=== PATIENT | female | born 1960 | race Two or more races ===

== ENCOUNTER 2018-08-18 12:25 | Emergency (ER) | payer BC, MEDICAID ==
[~2018-08-18] VITALS: Ht 162.6 cm; Wt 105.6 kg
[~2018-08-18 12:25] MED LIST: AMLO-150 PO; ATOR40TA78 PO; CHOL10002 PO; HYDR-3341 PO; HYDR12.517 PO; LISI5TAB7 PO; MULT-257 PO
[2018-08-18] MEDS ORDERED: SODIUM CHLORIDE FLUSH 10ML SYR IVF ONE (13:30)
[2018-08-18] MEDS ORDERED: ONDANSETRON 2MG/ML, 2ML IVPush ONE (13:30)
[2018-08-18] MEDS ORDERED: MORPHINE SULFATE 4 MG/ML, 1ML IVPush PRN (13:30)
[2018-08-18 13:35] LABS: CULTURE INDICATED? NO; MICROSCOPIC NOT IND
[2018-08-18] MEDS ORDERED: ONDANSETRON 2MG/ML, 2ML ONE (13:37)
[2018-08-18 13:47] VITALS: BP 143/66
[2018-08-18 14:12] LABS: BASOPHILS # (AUTO) 0.02 x10^3/uL (0-0.1); BASOPHILS % (AUTO) 0 % (0-1); EOSINOPHILS % (AUTO) 1 % (1-7); LYMPHOCYTES # (AUTO) 2.34 x10^3/uL (1-3.4); LYMPHOCYTES % (AUTO) 33 % (22-44); MD NO; MEAN CORPUSCULAR HEMOGLOBIN 30.2 pg (27.0-34.8); MEAN CORPUSCULAR HGB CONC 33.6 g/dL (32.4-35.8); MEAN CORPUSCULAR VOLUME 89.7 fL (80-100); MEAN PLATELET VOLUME 7.7 fL (7.4-10.4); MONOCYTES # (AUTO) 0.48 x10^3/uL (0.2-0.8); MONOCYTES % (AUTO) 7 % (2-9); NEUTROPHILS # (AUTO) 4.15 x10^3/uL (1.8-6.8); NEUTROPHILS % (AUTO) 59 % (42-75); PLATELET COUNT 294 x10^3/uL (130-400); RED BLOOD COUNT 5.03 x10^6/uL (3.82-5.3)
[2018-08-18 14:18] LABS: ALBUMIN 3.9 g/dL (3.4-5.0); ANION GAP 9 mmol/L (5-15); CALCIUM 8.6 mg/dL (8.5-10.1); CHLORIDE 108 mmol/L (98-107)
[2018-08-18 14:24] LABS: ALANINE AMINOTRANSFERASE 69 U/L (12-78); ALKALINE PHOSPHATASE 54 U/L (45-117); BILIRUBIN,TOTAL 0.8 mg/dL (0.2-1.0); CREATININE 0.82 mg/dL (0.55-1.02); TOTAL PROTEIN 7.5 g/dL (6.4-8.2); TROPONIN I < 0.015 ng/mL (0.000-0.045)
--- NOTE | 2018-08-18 14:42 | NUR ---
Patient sleeping soundly, VSS. Awaiting imaging.
--- NOTE | 2018-08-18 14:51 | NUR ---
Patient transported to imaging.
[2018-08-18] MEDS ORDERED: OMNIPAQUE 350 MG/ML, 100ML BOTTLE ONE (15:03)
--- NOTE | 2018-08-18 16:02 | NUR ---
Patient/Caregiver given discharge instructions and they have confirmed that they understand the instructions. Patient ambulatory with steady gait.
== END 2018-08-18 16:03 | disposition home or self-care (01) ==
LOC: ED 15:15
DX: K57.32 Diverticulitis of large intestine without perforation or abscess without bleeding (principal); G44.209 Tension-type headache, unspecified, not intractable; R07.89 Other chest pain; I10 Essential (primary) hypertension; Z90.49 Acquired absence of other specified parts of digestive tract; Z88.2 Allergy status to sulfonamides; Z88.1 Allergy status to other antibiotic agents; Z85.3 Personal history of malignant neoplasm of breast
CPT/HCPCS: 36415; 71045; 74177; 80053; 81003; 83690; 84484; 85025; 93005; 96374; 99284; J2405; Q9967

== ENCOUNTER 2018-12-06 08:14 | Observation (INO) | payer MEDICAID ==
[~2018-12-06] VITALS: Ht 162.6 cm; Wt 109.7 kg
[2018-12-07 16:39] VITALS: BP 130/81
== END 2018-12-07 16:59 | disposition home or self-care (01) ==
LOC: ED 09:51 → INTOOBSV 10:21 → EDIP 10:21 → 5SO 11:30
PROVIDERS: ADMIT Internal Medicine; ATTEND Internal Medicine
DX: R07.89 Other chest pain (principal); I11.9 Hypertensive heart disease without heart failure; E78.5 Hyperlipidemia, unspecified; I25.2 Old myocardial infarction; Z85.3 Personal history of malignant neoplasm of breast; Z90.710 Acquired absence of both cervix and uterus; Z90.49 Acquired absence of other specified parts of digestive tract; Z88.2 Allergy status to sulfonamides; Z88.8 Allergy status to other drugs, medicaments and biological substances; Z91.040 Latex allergy status; Z90.12 Acquired absence of left breast and nipple
CPT/HCPCS: 36415; 71045; 71275; 74175; 78452; 80048; 80053; 80061; 81001; 82040; 83036; 83735; 83880; 84439; 84443; 84484; 85025; 87086; 93005; 93017; 93306; 96372; 96374; 99285; A9502; C9898; G0378; J1644; J2060; J2785; Q9967

== ENCOUNTER 2020-08-10 14:58 | Emergency (ER) | payer MEDICAID ==
[~2020-08-10] VITALS: Ht 160 cm; Wt 104.5 kg
[~2020-08-10 14:58] MED LIST changes: +VALS1TAB29 PO
--- NOTE | 2020-08-10 15:44 | NUR ---
PT IN BED ON [employer], NO SIGNS OR SYMPTOMS OF ACUTE DISTRESS NOTED RESPIRATIONS EVEN AND UNLABORED PT COMPLAINING OF 5/10 CHEST PAIN AND SHORTNESS OF BREATH, SPEAKING IN FULL SENTENCES. MD IN ROOM TO ASSESS, RN IN ROOM TO START IV AND DRAW BLOOD. BED RAILS UP BILATERALLY AND CALL LIGHT WITHIN REACH.
[2020-08-10] MEDS ORDERED: NITROGLYCERIN SINGLE TAB 0.4 MG SL ONE ×2 (16:00→16:01)
[2020-08-10 16:08] LABS: BASOPHILS % (AUTO) 1 % (0-1); EOSINOPHILS % (AUTO) 3 % (1-7); LYMPHOCYTES % (AUTO) 43 % (22-44); MEAN CORPUSCULAR HGB CONC 34.3 g/dL (32.4-35.8); MEAN PLATELET VOLUME 7.4 fL (7.4-10.4); MONOCYTES % (AUTO) 7 % (2-9); NEUTROPHILS % (AUTO) 46 % (42-75); PLATELET COUNT 307 x10^3/uL (130-400); RED BLOOD COUNT 4.87 x10^6/uL (3.82-5.3); RED CELL DISTRIBUTION WIDTH 13.5 % (9.6-15.2)
[2020-08-10 16:09] LABS: MD NO
[2020-08-10 16:11] LABS: ALANINE AMINOTRANSFERASE 53 U/L (12-78); ANION GAP 6 mmol/L (5-15); CHLORIDE 109 mmol/L (98-107); CREATININE 0.76 mg/dL (0.55-1.02)
[2020-08-10 16:15] LABS: ALKALINE PHOSPHATASE 71 U/L (45-117); BILIRUBIN,TOTAL 0.4 mg/dL (0.2-1.0); TOTAL PROTEIN 7.9 g/dL (6.4-8.2); TROPONIN I < 0.015 ng/mL (0.000-0.045)
--- NOTE | 2020-08-10 17:34 | NUR ---
PT IN BED ON [employer] NO SIGNS OR SYMPTOMS OF ACUTE DISTRESS NOTED RESPIRATIONS EVEN AND UNLABORED MD IN ROOM TO ASSESS
[2020-08-10 17:55] VITALS: BP 135/79
== END 2020-08-10 18:14 | disposition home or self-care (01) ==
LOC: ED 18:00
DX: R07.89 Other chest pain (principal); R06.00 Dyspnea, unspecified; I10 Essential (primary) hypertension; Z90.49 Acquired absence of other specified parts of digestive tract; Z85.3 Personal history of malignant neoplasm of breast
CPT/HCPCS: 36415; 71045; 80053; 83880; 84484; 85025; 85379; 93005; 99285